=== PATIENT | female | born 1965 | race Two or more races ===

== ENCOUNTER 2020-07-20 06:32 | Day surgery (SDC) | payer OTHER ==
[~2020-07-20 06:32] MED LIST: CLONAZEPAM0.5 MG PO; RESTORIL15 M1 PO; ZOLOFT50 MG PO
== END 2020-07-20 17:59 | disposition home or self-care (01) ==
LOC: CIR.AMB 06:32
PROVIDERS: ATTEND Obstetrics & Gynecology
DX: N84.0 Polyp of corpus uteri (principal); Z20.828 Contact with and (suspected) exposure to other viral communicable diseases